=== PATIENT | male | born 1930 | race African-American/Black ===

== ENCOUNTER → 2016-10-12 | Outpatient (CLI) | payer MEDICARE, OTHER ==
[2016-10-12 10:53] LABS: ALANINE AMINOTRANSFERASE 28 U/L (21-72); ALBUMIN 3.5 g/dL (3.5-5.0); ALKALINE PHOSPHATASE 97 U/L (38-126); ANION GAP 8 (5-19); ASPARTATE AMINO TRANSFERASE 31 U/L (17-59); BILIRUBIN,TOTAL 0.5 mg/dL (0.2-1.3); BLOOD UREA NITROGEN 19 mg/dL (7-20); CALCIUM 9.1 mg/dL (8.4-10.2); CARBON DIOXIDE 29 mmol/L (22-30); CHLORIDE 105 mmol/L (98-107); CHOLESTEROL 176.01 mg/dL (0-200); CREATININE RESULT 1.76 mg/dL (0.52-1.25); Direct HDL 40 mg/dL (>40); GLUCOSE 109 mg/dL (75-110); POTASSIUM 4.9 mmol/L (3.6-5.0); SODIUM 142.2 mmol/L (137-145); TOTAL PROTEIN 7.3 g/dL (6.3-8.2); TRIGLYCERIDES 146 mg/dL (<150)
[2016-10-12 11:03] LABS: DIRECT LDL 92 mg/dL (<100)
== END ==
LOC: OD 09:20
PROVIDERS: ATTEND Internal Medicine
DX: I25.10 Atherosclerotic heart disease of native coronary artery without angina pectoris (principal); E78.4 Other hyperlipidemia; I35.0 Nonrheumatic aortic (valve) stenosis; N19 Unspecified kidney failure; I10 Essential (primary) hypertension; R01.1 Cardiac murmur, unspecified; Z98.61 Coronary angioplasty status; Z79.899 Other long term (current) drug therapy
CPT/HCPCS: 36415; 80053; 80061

== ENCOUNTER → 2017-01-28 | Outpatient (CLI) | payer MEDICARE, OTHER ==
--- NOTE | 2017-01-28 09:58 | RADIOLOGY REPORT (SQ) ---
EXAM DESCRIPTION: U/S RETROPERITON (RENAL/AORTA) COMPLETED DATE/TIME: 01/28/2017 7:47 am REASON FOR STUDY: CKD III (N18.3) N18.3 CHRONIC KIDNEY DISEASE, STAGE 3 (MODERATE) COMPARISON: None. TECHNIQUE: Dynamic and static grayscale images acquired of the kidneys and bladder and recorded on P ACS. Additional selected color Doppler and spectral images recorded. LIMITATIONS: Overlying bowel gas obscures the left kidney. FINDINGS: RIGHT KIDNEY: 9.5 cm. Mild increased echogenicity. Mild cortical thinning. 2.[address] No solid or suspicious masses. No hydronephrosis. No calcifications. LEFT KIDNEY: Poorly visualized. 9.1 cm. Mild increased echogenicity. No solid or suspicious mas ses. No hydronephrosis. No calcifications. BLADDER: No masses. OTHER FINDINGS: No other significant finding. IMPRESSION: LIMITED STUDY. MILD INCREASED ECHOGENICITY CONSISTENT WITH CHRONIC RENAL DISEASE. FREDO ICAL CYST IN THE RIGHT KIDNEY. NO HYDRONEPHROSIS. TECHNICAL DOCUMENTATION: JOB ID: [id number] [employer]- All Rights Reserved
== END ==
LOC: RAD 06:39
PROVIDERS: ATTEND Internal Medicine Geriatric Medicine
DX: N18.3 Chronic kidney disease, stage 3 (moderate) (principal); N28.1 Cyst of kidney, acquired
CPT/HCPCS: 76770

== ENCOUNTER → 2017-04-14 | Outpatient (CLI) | payer MEDICARE, OTHER ==
[2017-04-14 10:21] LABS: ALANINE AMINOTRANSFERASE 24 U/L (21-72); ALBUMIN 3.8 g/dL (3.5-5.0); ALKALINE PHOSPHATASE 97 U/L (38-126); ANION GAP 9 (5-19); ASPARTATE AMINO TRANSFERASE 31 U/L (17-59); BILIRUBIN,DIRECT 0.4 mg/dL (0.0-0.4); BILIRUBIN,TOTAL 0.5 mg/dL (0.2-1.3); BLOOD UREA NITROGEN 24 mg/dL (7-20); CALCIUM 8.9 mg/dL (8.4-10.2); CARBON DIOXIDE 24 mmol/L (22-30); CHLORIDE 107 mmol/L (98-107); CHOLESTEROL 184.31 mg/dL (0-200); CREATININE RESULT 1.94 mg/dL (0.52-1.25); Direct HDL 38 mg/dL (>40); GLUCOSE 106 mg/dL (75-110); SODIUM 139.5 mmol/L (137-145); TOTAL PROTEIN 7.3 g/dL (6.3-8.2); TRIGLYCERIDES 158 mg/dL (<150)
[2017-04-14 10:33] LABS: VLDL CHOLESTEROL 31.6 mg/dL (10-31)
[2017-04-14 10:51] LABS: DIRECT LDL 98 mg/dL (<100)
== END ==
LOC: OD 08:33
PROVIDERS: ATTEND Internal Medicine
DX: I25.10 Atherosclerotic heart disease of native coronary artery without angina pectoris (principal); I10 Essential (primary) hypertension; I35.0 Nonrheumatic aortic (valve) stenosis; E78.4 Other hyperlipidemia; R01.1 Cardiac murmur, unspecified; Z98.61 Coronary angioplasty status; Z79.899 Other long term (current) drug therapy; N19 Unspecified kidney failure
CPT/HCPCS: 36415; 80053; 80061

== ENCOUNTER 2017-05-06 06:39 | Day surgery (SDC) | payer MEDICARE, OTHER ==
[~2017-05-06 06:39] MED LIST: KETOROLAC TROMETHAMINE 0.45% 4 DROP/0.4 ML DROPERETTE OS PRN
[2017-05-06] MEDS ORDERED: LIDOCAINE 1% INJ-PF (10 MG/ML) 30 ML SDV ONE (07:42)
[2017-05-06] MEDS ORDERED: CHONDR SU A NA/HYALUR INTRAOC KIT (SURGICARE) ONE (07:42)
[2017-05-06] MEDS ORDERED: EPINEPHRINE INJ/PF 1 MG/1 ML AMPULE ONE (07:42)
[2017-05-06] MEDS: TETRACAINE HCL 0.5% OPH SOLN 2 ML OS PRN ×3 (08:06→08:53)
[2017-05-06] MEDS: CYCLOPENTOLATE 0.2%/PHENYLEPHRINE 1% OPH SOLN 2 ML OS PRN ×3 (08:07→08:32)
[2017-05-06] MEDS: TROPICAMIDE 1% OPH SOLN 3 ML OS PRN ×3 (08:07→08:32)
[2017-05-06] MEDS: BESIFLOXACIN HCL 0.6% OPH SUSP 5 ML BOTTLE OS PRN ×3 (08:07→09:17)
[2017-05-06] MEDS ORDERED: FENTANYL CITRATE INJ/PF 100 MCG/2 ML AMPUL ONE (08:23)
[2017-05-06] MEDS ORDERED: MIDAZOLAM 2 MG/2 ML INJ ONE (08:23)
--- NOTE | 2017-05-07 07:12 | [facility] DISCHARGE SUMMARY E ---
[facility] Discharge Summary NAME: CLARA DAVIDSON AGE: 86Y ADMITTED: 05/06/2017 DISCHARGED: 05/06/2017 HOSPITAL COURSE: This is an 86-year-old patient who underwent cataract extraction of the left eye diagnosed as cataract left eye. He underwent surgery because he was having difficulty driving at night. He should be on a regular diet. No bending at the waist. No heavy lifting. He should use his Besivance, Ilevro, and Durezol at 3 p.m. and 8 p.m. and sleep with a rigid shield, and I see him for his one day postoperative tomorrow. DICTATING PHYSICIAN: GORDON CLEMENS M.D. [id number] PHY#: [id number] ID: [id number] JOB#: [id number] ACCT: [id number] cc:GORDON CLEMENS M.D. >
--- NOTE | 2017-05-07 07:12 | [facility] OPERATIVE REPORT E ---
[facility] Operative Report NAME: CLARA DAVIDSON AGE: 86Y DATE OF SURGERY: 05/06/2017 ROOM: PREOPERATIVE DIAGNOSIS: CATARACT, LEFT EYE. POSTOPERATIVE DIAGNOSIS: CATARACT, LEFT EYE. OPERATION: Cataract extraction with intraocular lens implant of the left eye. SURGEON: GORDON CLEMENS M.D. ANESTHESIA: Topical. PROCEDURE: After obtaining appropriate consent, the patient's left eye was prepped and draped in sterile fashion as well as the surgeon in a sterile manner and cataract surgery was started. First a paracentesis blade was used to make a small side-port incision. Viscoelastic was used to inflate the anterior chamber. Next a 2.4 mm incision was made with the paracentesis blade. A continuous capsulorrhexis incision was made using a cystotome and Utrata forceps. Following this hydrodissection was carried out to make the lens fully loose and mobile and it was rotated 90 degrees. Following this, a jrffuh-qlm-nsnqfmi technique was used to phacoemulsify the lens with a CDE of 10.67. The remaining cortex was removed with irrigation/aspiration. Provisc was instilled into the capsular bag to inflate the bag. A SN60WF, 21.5 SN60WF diopter lens was placed. The remaining viscoelastic material was removed with irrigation/aspiration. Following this, a 10-0 nylon suture was used to close the incision and it was found to be watertight. Vigamox was instilled in the eye and a protective shield was placed over the eye. The patient returned to the postoperative recovery in stable condition. DICTATING PHYSICIAN: GORDON CLEMENS M.D. [id number] PHY#: [id number] ID: [id number] JOB#: [id number] ACCT: [id number] cc:GORDON CLEMENS M.D. >
== END 2017-05-06 10:07 | disposition home or self-care (01) ==
LOC: SC 06:39
PROVIDERS: ATTEND Internal Medicine
PROC: 08RK3JZ Replacement of Left Lens with Synthetic Substitute, Percutaneous Approach (ICD-10-PCS; principal; 2017-05-06 09:00)
DX: H25.813 Combined forms of age-related cataract, bilateral (principal); I10 Essential (primary) hypertension; Z87.891 Personal history of nicotine dependence; Z79.82 Long term (current) use of aspirin; Z79.899 Other long term (current) drug therapy; H35.3131 Nonexudative age-related macular degeneration, bilateral, early dry stage; H43.22 Crystalline deposits in vitreous body, left eye; E78.00 Pure hypercholesterolemia, unspecified; I25.10 Atherosclerotic heart disease of native coronary artery without angina pectoris
CPT/HCPCS: 66984; V2632; J2250; J3490 ×2; A9270; J0171; J3010; 142

== ENCOUNTER 2017-05-27 08:54 | Day surgery (SDC) | payer MEDICARE, OTHER ==
[~2017-05-27 08:54] MED LIST changes: +KETOROLAC TROMETHAMINE 0.45% 4 DROP/0.4 ML DROPERETTE OD PRN; -KETOROLAC TROMETHAMINE 0.45% 4 DROP/0.4 ML DROPERETTE OS PRN
[2017-05-27] MEDS ORDERED: EPINEPHRINE INJ/PF 1 MG/1 ML AMPULE ONE (09:18)
[2017-05-27] MEDS ORDERED: CHONDR SU A NA/HYALUR INTRAOC KIT (SURGICARE) ONE (09:18)
[2017-05-27] MEDS ORDERED: LIDOCAINE 1% INJ-PF (10 MG/ML) 30 ML SDV ONE (09:18)
[2017-05-27] MEDS: BESIFLOXACIN HCL 0.6% OPH SUSP 5 ML BOTTLE OD PRN ×3 (09:38→10:28)
[2017-05-27] MEDS: CYCLOPENTOLATE 0.2%/PHENYLEPHRINE 1% OPH SOLN 2 ML OD PRN ×3 (09:38→09:58)
[2017-05-27] MEDS: TROPICAMIDE 1% OPH SOLN 3 ML OD PRN ×3 (09:38→09:58)
[2017-05-27] MEDS: TETRACAINE HCL 0.5% OPH SOLN 2 ML OD PRN ×3 (09:39→10:10)
[2017-05-27] MEDS ORDERED: MIDAZOLAM 2 MG/2 ML INJ ONE (09:51)
[2017-05-27] MEDS ORDERED: FENTANYL CITRATE INJ/PF 100 MCG/2 ML AMPUL ONE (09:51)
--- NOTE | 2017-05-27 18:03 | DISCHARGE SUMMARY E ---
Discharge Summary NAME: CLARA DAVIDSON : 1930 AGE: 86Y ADMITTED: 05/27/2017 DISCHARGED: REASON FOR ADMISSION: This is an 86-year-old male who underwent cataract extraction of his right eye. DIAGNOSIS: Cataract, right eye. HISTORY AND HOSPITAL COURSE: He underwent surgery because he was having difficulty seeing road signs and words on the TV. He should be on a regular diet. No bending at his waist. No heavy lifting. He should use his Besivance, Ilevro, and Durezol at 3:00 p.m. and 8:00 p.m. and sleep with a rigid shield, and I will see him for his 1-day postoperative day tomorrow. DICTATING PHYSICIAN: GORDON CLEMENS M.D. [id number] PHY#: [id number] ID: [id number] JOB#: [id number] ACCT: [id number] cc:GORDON CLEMENS M.D. >
--- NOTE | 2017-05-27 18:03 | [facility] OPERATIVE REPORT E ---
[facility] Operative Report NAME: CLARA DAVIDSON AGE: 86Y DATE OF SURGERY: 05/27/2017 ROOM: PREOPERATIVE DIAGNOSIS: CATARACT, RIGHT EYE. POSTOPERATIVE DIAGNOSIS: CATARACT, RIGHT EYE. OPERATION: Cataract extraction with intraocular lens implant of the right eye. SURGEON: GORDON CLEMENS M.D. ANESTHESIA: Topical. PROCEDURE: After obtaining appropriate consent, the patient's right eye was prepped and draped in sterile fashion as well as the surgeon in a sterile manner and cataract surgery was started. First a paracentesis blade was used to make a small side-port incision. Viscoelastic was used to inflate the anterior chamber. Next a 2.4 mm incision was made with the paracentesis blade. A continuous capsulorrhexis incision was made using a cystotome and Utrata forceps. Following this hydrodissection was carried out to make the lens fully loose and mobile and it was rotated 90 degrees. Following this, a gnjequ-xkj-eduavke technique was used to phacoemulsify the lens with a CDE of 11.75. The remaining cortex was removed with irrigation/aspiration. Provisc was instilled into the capsular bag to inflate the bag. A SN60WF, 20.5 diopter lens was placed. The remaining viscoelastic material was removed with irrigation/aspiration. Following this, a 10-0 nylon suture was used to close the incision and it was found to be watertight. Vigamox was instilled in the eye and a protective shield was placed over the eye. The patient returned to the postoperative recovery in stable condition. DICTATING PHYSICIAN: GORDON CLEMENS M.D. [id number] PHY#: [id number] ID: [id number] JOB#: [id number] ACCT: [id number] cc:GORDON CLEMENS M.D. >
== END 2017-05-27 11:19 | disposition home or self-care (01) ==
LOC: SC 08:54
PROVIDERS: ATTEND Internal Medicine
PROC: 08RJ3JZ Replacement of Right Lens with Synthetic Substitute, Percutaneous Approach (ICD-10-PCS; principal; 2017-05-27 10:30)
DX: H25.811 Combined forms of age-related cataract, right eye (principal); Z96.1 Presence of intraocular lens; I10 Essential (primary) hypertension; K21.9 Gastro-esophageal reflux disease without esophagitis; M17.9 Osteoarthritis of knee, unspecified; Z79.82 Long term (current) use of aspirin; Z79.899 Other long term (current) drug therapy
CPT/HCPCS: 66984; V2632; J2250; J3490 ×2; A9270; J0171; 142; J3010

== ENCOUNTER → 2017-11-03 | Outpatient (CLI) | payer MEDICARE, OTHER ==
[2017-11-03 10:41] LABS: CHOLESTEROL 174.99 mg/dL (0-200); TRIGLYCERIDES 123 mg/dL (<150)
[2017-11-03 10:52] LABS: DIRECT LDL 100 mg/dL (<100)
== END ==
LOC: OD 08:17
PROVIDERS: ATTEND Internal Medicine
DX: I25.10 Atherosclerotic heart disease of native coronary artery without angina pectoris (principal); I10 Essential (primary) hypertension; I35.0 Nonrheumatic aortic (valve) stenosis; E78.4 Other hyperlipidemia; N19 Unspecified kidney failure; R01.1 Cardiac murmur, unspecified; Z98.61 Coronary angioplasty status; Z79.899 Other long term (current) drug therapy
CPT/HCPCS: 36415; 80061

== ENCOUNTER → 2017-11-10 | Outpatient (CLI) | payer MEDICARE, OTHER ==
--- NOTE | 2017-11-10 15:52 | RADIOLOGY REPORT (SQ) ---
EXAM DESCRIPTION: BARIUM SWALLOW ESOPHAGUS COMPLETED DATE/TIME: 11/10/2017 2:39 pm REASON FOR STUDY: R13.10 DYSPHAGIA, UNSPECIFIED R13.10 DYSPHAGIA, UNSPECIFIED COMPARISON: None. TECHNIQUE: Under fluoroscopic guidance, patient ingested water-soluble contrast to rule out foreign body prior to ingesting barium for the study. Fluoroscopic spot images and routine radiographic image s acquired and stored on PACS. 12 MM BARIUM TABLET GIVEN: Yes. Significant delay in the distal esophagus due to high-grade stricture versus achalasia. LIMITATIONS: None. FLUOROSCOPY TIME: 1 minutes 8 seconds 17 fluoroscopy images saved to PACS. FINDINGS: NEUROMUSCULAR COORDINATION OF SWALLOW: Normal. No aspiration. ESOPHAGEAL MOTILITY: Poor motility with marked dilatation of the entire length of the esophagus. No esophageal spasm. ESOPHAGEAL MUCOSA: Cervical esophageal narrowing approximately 50% is noted near the region of a prom inent cricopharyngeus impression without significant delay in the passage of a barium tablet. There is marked dilatation of nearly the entire length of the esophagus with significant narrowing in the d istal esophagus. This is consistent with achalasia versus high-grade smooth stricture. Contrast can be seen passing slowly through the GE junction and into the stomach. Prominent mucosal folds are no angelica in the mid and distal esophagus. No definite lesions are noted however, visualization is limited due to stasis of barium. Upper endoscopy may be helpful for direct visualization. GASTRO-ESOPHAGEAL JUNCTION: No hiatal hernia. No definite reflux seen however, evaluation was diffic ult due to stasis of barium. NON-GI TRACT STRUCTURES: No significant finding. OTHER: Limited imaging of the stomach demonstrate no definite mucosal abnormalities. No delay in gas tric emptying. IMPRESSION: 1. MARKED DILATATION OF THE ESOPHAGUS WITH HIGH-GRADE NARROWING NEAR THE GE JUNCTION MO ST CONSISTENT WITH ACHALASIA HOWEVER, HIGH-GRADE STRICTURE IS A POSSIBILITY. THIS CAUSES SLOW PASSAG E OF BARIUM AND SIGNIFICANT DELAY IN THE PASSAGE OF A BARIUM TABLET. 2. CERVICAL ESOPHAGEAL NARROWING APPROXIMATELY 50%. THIS DID NOT CAUSE DELAY IN THE PASSAGE OF A BA RIUM TABLET. 3. NO HIATAL HERNIA. NO REFLUX. 4. GASTROENTEROLOGY CONSULTATION AND POSSIBLE UPPER ENDOSCOPY IS RECOMMENDED. COMMENT: Results were called to Dr. William at approximately 1430 hours. Quality ID 145: Final reports for procedures using fluoroscopy that document radiation exposure hemalatha maryuri, or exposure time and number of fluorographic images (if radiation exposure indices are not avail able) TECHNICAL DOCUMENTATION: JOB ID: [id number] [employer]- All Rights Reserved Reading location - IP/workstation name: [email or web address]
== END ==
LOC: RAD 13:37
PROVIDERS: ATTEND Internal Medicine Geriatric Medicine
DX: K22.0 Achalasia of cardia (principal); R13.10 Dysphagia, unspecified
CPT/HCPCS: 74220

== ENCOUNTER → 2018-02-08 | Outpatient (CLI) | payer MEDICARE, OTHER ==
[2018-02-08 10:43] LABS: ALANINE AMINOTRANSFERASE 23 U/L (21-72); ALBUMIN 3.3 g/dL (3.5-5.0); ALKALINE PHOSPHATASE 81 U/L (38-126); ANION GAP 10 (5-19); ASPARTATE AMINO TRANSFERASE 28 U/L (17-59); BILIRUBIN,DIRECT 0.3 mg/dL (0.0-0.4); BILIRUBIN,TOTAL 0.3 mg/dL (0.2-1.3); BLOOD UREA NITROGEN 21 mg/dL (7-20); CALCIUM 8.8 mg/dL (8.4-10.2); CARBON DIOXIDE 25 mmol/L (22-30); CHLORIDE 111 mmol/L (98-107); CHOLESTEROL 145.35 mg/dL (0-200); GLUCOSE 107 mg/dL (75-110); POTASSIUM 4.4 mmol/L (3.6-5.0); SODIUM 146.2 mmol/L (137-145); TOTAL PROTEIN 6.6 g/dL (6.3-8.2); TRIGLYCERIDES 79 mg/dL (<150)
[2018-02-08 10:56] LABS: DIRECT LDL 77 mg/dL (<100)
== END ==
LOC: OD 09:06
PROVIDERS: ATTEND Internal Medicine Geriatric Medicine
DX: I10 Essential (primary) hypertension (principal)
CPT/HCPCS: 36415; 80053; 80061

== ENCOUNTER → 2018-03-16 | Outpatient (CLI) | payer MEDICARE, OTHER ==
[2018-03-16 09:48] LABS: ALANINE AMINOTRANSFERASE 15 U/L (21-72); ALBUMIN 3.5 g/dL (3.5-5.0); ALKALINE PHOSPHATASE 92 U/L (38-126); ANION GAP 13 (5-19); ASPARTATE AMINO TRANSFERASE 26 U/L (17-59); BILIRUBIN,DIRECT 0.4 mg/dL (0.0-0.4); BILIRUBIN,TOTAL 0.6 mg/dL (0.2-1.3); BLOOD UREA NITROGEN 29 mg/dL (7-20); CALCIUM 9.1 mg/dL (8.4-10.2); CARBON DIOXIDE 24 mmol/L (22-30); CHLORIDE 107 mmol/L (98-107); CHOLESTEROL 145.21 mg/dL (0-200); GLUCOSE 96 mg/dL (75-110); SODIUM 143.7 mmol/L (137-145); TOTAL PROTEIN 7.1 g/dL (6.3-8.2); TRIGLYCERIDES 116 mg/dL (<150)
[2018-03-16 09:59] LABS: DIRECT LDL 73 mg/dL (<100)
== END ==
LOC: OD 08:01
PROVIDERS: ATTEND Internal Medicine
DX: I25.10 Atherosclerotic heart disease of native coronary artery without angina pectoris (principal); E78.4 Other hyperlipidemia; N19 Unspecified kidney failure; I35.0 Nonrheumatic aortic (valve) stenosis; I10 Essential (primary) hypertension; R01.1 Cardiac murmur, unspecified; Z98.61 Coronary angioplasty status; Z79.899 Other long term (current) drug therapy
CPT/HCPCS: 36415; 80053; 80061

== ENCOUNTER → 2018-03-16 | Outpatient (CLI) | payer MEDICARE, OTHER ==
--- NOTE | 2018-03-16 10:03 | RADIOLOGY REPORT (SQ) ---
EXAM DESCRIPTION: BARIUM SWALLOW ESOPHAGUS COMPLETED DATE/TIME: 03/16/2018 9:25 am REASON FOR STUDY: DYSPHAGIA R13.10 DYSPHAGIA, UNSPECIFIED COMPARISON: Esophagram 11/10/2017 TECHNIQUE: Under fluoroscopic guidance, patient ingested effervescent granules followed by thick and thin barium. Fluoroscopic spot images and routine radiographic images acquired and stored on PACS. 12 MM BARIUM TABLET GIVEN: No LIMITATIONS: None. FLUOROSCOPY TIME: FLUORO TIME: 2 minutes 18 seconds 11 series of digital images saved to PACS. FINDINGS: NEUROMUSCULAR COORDINATION OF SWALLOW: Trace subglottic aspiration occurred during the carie dy. Prominent cricopharyngeus impression ESOPHAGEAL MOTILITY: Diffusely decreased esophageal motility and peristalsis ESOPHAGEAL MUCOSA: Normal mucosa without masses or ulceration. GASTRO-ESOPHAGEAL JUNCTION: No hiatal hernia. There is tight stricture at the GE junction, unchanged from 11/10/2017. This causes barium to pool in the distal esophagus, with very slow esophageal emptyi ng. NON-GI TRACT STRUCTURES: No significant finding. OTHER: Paucity of folds in the stomach, atrophic gastritis may be present. IMPRESSION: Subglottic aspiration Distended saccular esophagus with decreased peristalsis. Tight stricture at the GE junction which de layed passage of thin and thick liquid barium into the stomach. COMMENT: Quality ID 145: Final reports for procedures using fluoroscopy that document radiation exp osure indices, or exposure time and number of fluorographic images (if radiation exposure indices are not available) TECHNICAL DOCUMENTATION: JOB ID: [id number] [employer]- All Rights Reserved Reading location - IP/workstation name: [email or web address]
== END ==
LOC: RAD 08:24
PROVIDERS: ATTEND Internal Medicine Gastroenterology
DX: R13.10 Dysphagia, unspecified (principal)
CPT/HCPCS: 74220

== ENCOUNTER 2018-05-10 15:05 | Day surgery (SDC) | payer MEDICARE, OTHER ==
[2018-05-10] MEDS ORDERED: DIPHENHYDRAMINE HCL 50 MG/ML VIAL ONE (16:42)
[2018-05-10] MEDS ORDERED: GLUCAGON,HUMAN RECOMB 1 MG INJ ONE (16:43)
[2018-05-10] MEDS ORDERED: FENTANYL CITRATE INJ/PF 100 MCG/2 ML AMPUL ONE (16:43)
[2018-05-10] MEDS ORDERED: EPINEPHRINE INJ 1 MG/10 ML DISP.SYRIN ONE (16:43)
[2018-05-10] MEDS ORDERED: ONDANSETRON HCL INJ/PF 4 MG/2 ML SDV ONE (16:43)
[2018-05-10] MEDS ORDERED: NALOXONE HCL INJ/PF 0.4 MG/1 ML SDV ONE (16:43)
[2018-05-10] MEDS ORDERED: MIDAZOLAM 2 MG/2 ML INJ ONE (16:43)
[2018-05-10] MEDS ORDERED: FLUMAZENIL INJ 0.5 MG/5 ML VIAL ONE (16:43)
[2018-05-10] MEDS ORDERED: ONABOTULINUMTOXINA INJ/PF 100 UNIT SDV IM ONE (17:30)
--- NOTE | 2018-05-10 17:47 | Operative Report ---
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 The upper endoscope was inserted into the esophagus under direct vision and advanced into the stomach. The duodenum was entered and examined to the second part. Endoscope was then slowly pulled out of the patient as the mucosa was examined into details. Patient tolerated procedure well. Findings Esophagus: There was moderate amount of food in the esophagus which is I will have the EGD scope on the side but will start with the was also dilated. The food was pushed into the stomach through a tight muscular GE junction. No mucosal abnormality was identified. There was large amount of fluid in the stomach which limited my view. 100 units of Botox was then injected into 4 quadrants at the GE junction. Antrum: Normal Body: Normal Fundus: Normal Duodenum first part: Normal Duodenum second part: Normal Plan: Soft diet OPERATION: .
[2018-05-10 18:35] VITALS: BP 154/75
== END 2018-05-10 18:35 | disposition home or self-care (01) ==
LOC: END 15:05
PROVIDERS: ATTEND Internal Medicine Gastroenterology
DX: K22.2 Esophageal obstruction (principal); K21.9 Gastro-esophageal reflux disease without esophagitis; I10 Essential (primary) hypertension; E78.00 Pure hypercholesterolemia, unspecified; D64.9 Anemia, unspecified; Z79.82 Long term (current) use of aspirin; Z79.899 Other long term (current) drug therapy
CPT/HCPCS: 43236; J2250; J3010; J0585; J0171; J1200; J1610; J2310; J2405; J3490

== ENCOUNTER 2018-07-05 13:07 | Day surgery (SDC) | payer MEDICARE, OTHER ==
[2018-07-05] MEDS ORDERED: LIDOCAINE 2% JELLY 5 ML TUBE ONE (13:50)
[2018-07-05] MEDS ORDERED: ONDANSETRON HCL INJ/PF 4 MG/2 ML SDV ONE (14:53)
[2018-07-05] MEDS ORDERED: FENTANYL CITRATE INJ/PF 100 MCG/2 ML AMPUL ONE (14:53)
[2018-07-05] MEDS ORDERED: NALOXONE HCL INJ/PF 0.4 MG/1 ML SDV ONE (14:54)
[2018-07-05] MEDS ORDERED: GLUCAGON,HUMAN RECOMB 1 MG INJ ONE (14:54)
[2018-07-05] MEDS ORDERED: FLUMAZENIL INJ 0.5 MG/5 ML VIAL ONE (14:54)
[2018-07-05] MEDS ORDERED: EPINEPHRINE INJ 1 MG/10 ML DISP.SYRIN ONE (14:54)
[2018-07-05] MEDS: MIDAZOLAM 2 MG/2 ML INJ ONE ×2 (16:18→16:25)
[2018-07-05] MEDS ORDERED: ONABOTULINUMTOXINA INJ/PF 100 UNIT SDV IJ PRN (16:33)
--- NOTE | 2018-07-05 16:50 | Operative Report ---
Operative Report DATE OF SURGERY: 07/05/18 Operative Report: Pre-op diagnosis: Dysphagia with achalasia Post-op diagnosis: 1. GE junction stricture 2. Markedly dilated esophagus with foreign body Surgery: Esophagogastroduodenoscopy with foreign body removal, balloon dilation and Botox injection Medications: Versed 2mg Fentanyl 50mcg IV push Tissue removed: None Procedure: After informed consent obtained from patient, the throat was sprayed with Hurricane and conscious sedation was achieved. The upper endoscope was inserted into the esophagus under direct vision and advanced into the stomach. The duodenum was entered and examined to the second part. Endoscope was then slowly pulled out of the patient as the mucosa was examined into details. Patient tolerated procedure well. Findings Esophagus: There was large amount of food in the esophagus which was markedly dilated with no contractions. The food was then pushed into the stomach over a few minutes. There was a stricture at the GE junction which appear muscular with no mucosal abnormality. I decided to dilate the GE junction with a 20 mm balloon. This yielded a break in the mucosa. Botox 100 units was then injected into 4 quadrants at the GE junction. Antrum: Normal Body: Normal Fundus: Normal Duodenum first part: Normal Duodenum second part: Normal Plan: Continue soft foods and liquids. He would benefit from pneumatic dilation at [facility] unless he has significant improvement with today's procedure OPERATION: .
[2018-07-05 17:40] VITALS: BP 159/80
== END 2018-07-05 17:40 | disposition home or self-care (01) ==
LOC: END 13:07
PROVIDERS: ATTEND Internal Medicine Gastroenterology
DX: K22.2 Esophageal obstruction (principal); K22.8 Other specified diseases of esophagus; T18.128A Food in esophagus causing other injury, initial encounter; X58.XXXA Exposure to other specified factors, initial encounter; K21.9 Gastro-esophageal reflux disease without esophagitis; I10 Essential (primary) hypertension; E78.00 Pure hypercholesterolemia, unspecified; D64.9 Anemia, unspecified; Z79.82 Long term (current) use of aspirin; Z79.899 Other long term (current) drug therapy
CPT/HCPCS: 43236; 43249; 91010; C1726; J2250; J3010; J0585; J0171; J1610; J2310; J2405; J3490

== ENCOUNTER 2019-06-27 15:30 | Emergency (ER) | payer MEDICARE, OTHER ==
--- NOTE | 2019-06-27 15:55 | ER Document Report ---
ED Medical Screen (RME) - General Chief Complaint: Abdominal Pain Stated Complaint: DIGESTIVE ISSUES Time Seen by Provider: 06/27/19 15:42 Primary Care Provider: VIET CESPEDES MD [Primary Care Provider] - Follow up as needed Notes: Patient is an 88-year-old male who presents emergency department with the chief complaint of the feeling of food getting stuck at the end of his esophagus. About a year ago he had his esophagus evaluated and had it stretched to help. He did not have any problems until just recently. Patient states that sometimes he will feel something gets stuck and he will bend over and ended up vomiting. He did not vomit today and does not feel like something is stuck. Denies any pain. Exam: Soft nontender abdomen. I have greeted and performed a rapid initial assessment of this patient. A comprehensive ED assessment and evaluation of the patient, analysis of test results and completion of medical decision making process will be conducted by an additional ED providers. TRAVEL OUTSIDE OF THE [place] IN LAST 30 DAYS: No - Related Data Allergies/Adverse Reactions: No Known Allergies Allergy (Verified 06/27/19 15:37) Past Medical History - Past Medical History Cardiac Medical History: Reports: Hx Coronary Artery Disease - 2 stents, Hx Hypertension Denies: Hx Heart Attack Pulmonary Medical History: Denies: Hx Asthma, Hx Bronchitis, Hx COPD, Hx Pneumonia Neurological Medical History: Denies: Hx Cerebrovascular Accident, Hx Seizures GI Medical History: Denies: Hx Hepatitis, Hx Hiatal Hernia, Hx Ulcer Musculoskeltal Medical History: Denies Hx Arthritis Infectious Medical History: Denies: Hx Hepatitis Past Surgical History: Denies: Hx Open Heart Surgery, Hx Pacemaker - Immunizations Hx Diphtheria, Pertussis, Tetanus Vaccination: No Physical Exam - Vital signs Vitals: Temp Pulse Resp BP 97.8 F 91 18 152/67 H 06/27/19 15:35 06/27/19 15:35 06/27/19 15:35 06/27/19 15:35 Course - Vital Signs Vital signs: Temp Pulse Resp BP Pulse Ox 97.8 F 91 18 152/67 H 06/27/19 15:35 06/27/19 15:35 06/27/19 15:35 06/27/19 15:35 Doctor's Discharge - Discharge Referrals: VIET CESPEDES MD [Primary Care Provider] - Follow up as needed
[2019-06-27 16:12] LABS: ABSOLUTE LYMPHOCYTES (AUTO) 1.5 10^3/uL (0.5-4.7); ABSOLUTE MONOCYTES (AUTO) 0.5 10^3/uL (0.1-1.4); ABSOLUTE NEUT (AUTO) 1.7 10^3/uL (1.7-8.2); BASOPHILS % (AUTO) 0.7 % (0-2); EOSINOPHILS % (AUTO) 1.1 % (0-6); HEMATOCRIT 35.8 % (37.9-51.0); HEMOGLOBIN 11.7 g/dL (13.5-17.0); LYMPHOCYTES % (AUTO) 39.7 % (13-45); MEAN CORPUSCULAR HEMOGLOBIN 27.4 pg (27.0-33.4); MEAN CORPUSCULAR HGB CONC 32.8 g/dL (32.0-36.0); MEAN CORPUSCULAR VOLUME 83 fl (80-97); MONOCYTES % (AUTO) 13.8 % (3-13); PLATELET COUNT 251 10^3/uL (150-450); RED BLOOD COUNT 4.28 10^6/uL (4.35-5.55); RED CELL DISTRIBUTION WIDTH 14.1 % (11.5-14.0); SEGMENTED NEUTROPHILS % (AUTO) 44.7 % (42-78); TOTAL CELLS COUNTED % (AUTO) 100 %; WHITE BLOOD COUNT 3.9 10^3/uL (4.0-10.5)
[2019-06-27 16:36] LABS: ALBUMIN 3.1 g/dL (3.5-5.0); ALKALINE PHOSPHATASE 86 U/L (38-126); ANION GAP 7 (5-19); ASPARTATE AMINO TRANSFERASE 26 U/L (17-59); BILIRUBIN,DIRECT 0.2 mg/dL (0.0-0.4); BILIRUBIN,TOTAL 0.4 mg/dL (0.2-1.3); BLOOD UREA NITROGEN 18 mg/dL (7-20); CARBON DIOXIDE 25 mmol/L (22-30); CHLORIDE 112 mmol/L (98-107); GLUCOSE 94 mg/dL (75-110); POTASSIUM 5.3 mmol/L (3.6-5.0); TOTAL PROTEIN 6.9 g/dL (6.3-8.2)
--- NOTE | 2019-06-27 17:03 | RADIOLOGY REPORT (SQ) ---
EXAM DESCRIPTION: BARIUM SWALLOW ESOPHAGUS COMPLETED DATE/TIME: 06/27/2019 4:47 pm REASON FOR STUDY: sensation of not getting food down COMPARISON: Barium swallow 03/16/2018 TECHNIQUE: Under fluoroscopic guidance, patient ingested water-soluble contrast followed by thick an d thin barium. Fluoroscopic spot images and routine radiographic images acquired and stored on PACS. 12 MM BARIUM TABLET GIVEN: Barium tablet stuck a GE junction LIMITATIONS: None. FLUOROSCOPY TIME: 3.41 minutes 16 images saved to PACS. FINDINGS: NEUROMUSCULAR COORDINATION OF SWALLOW: Normal. No aspiration. Prominent cricopharyngeus h ypertrophy. ESOPHAGEAL MOTILITY: Decreased peristalsis and motility. ESOPHAGEAL MUCOSA: Limited evaluation due to food residuals throughout the esophagus. The esophagus is diffusely dilated and patulous. No definite mass is identified. GASTRO-ESOPHAGEAL JUNCTION: No hiatal hernia. Significant stricture at the GE junction similar to st udy of 03/16/2018. Stricture causes slow esophageal emptying into the stomach with food residuals see n in esophagus. NON-GI TRACT STRUCTURES: No significant finding. OTHER: No other significant finding. IMPRESSION: DIFFUSE ESOPHAGEAL DILATATION WITH FOOD RESIDUALS SEEN THROUGHOUT. SIGNIFICANT STRICTUR E OF THE GE JUNCTION WHICH DELAYS ESOPHAGEAL EMPTYING AND IMPEDES PASSAGE OF A 12 MM BARIUM TABLET. STUDY IS SIMILAR IN APPEARANCE TO BARIUM SWALLOW OF 03/16/2018. COMMENT: NONE Quality ID 145: Final reports for procedures using fluoroscopy that document radiation exposure hemalatha maryuri, or exposure time and number of fluorographic images (if radiation exposure indices are not avail able) TECHNICAL DOCUMENTATION: JOB ID: [id number] [employer]- All Rights Reserved Reading location - IP/workstation name: [email or web address] [id number]
--- NOTE | 2019-06-27 18:32 | ER Document Report ---
ED General - General Chief Complaint: Abdominal Pain Stated Complaint: DIGESTIVE ISSUES Time Seen by Provider: 06/27/19 15:42 Primary Care Provider: VIET CESPEDES MD [Primary Care Provider] - Follow up as needed TRAVEL OUTSIDE OF THE [place] IN LAST 30 DAYS: No - HPI Notes: Patient is an 88-year-old male who presents emergency department for evaluation. He states he feels as if he has something stuck in his esophagus. He states he said similar symptoms in the past. He had a dilation and treatment last year. He states his symptoms have arisen over the last month. He denies any significant foreign body sensation right now. He is tolerating fluids. Still urinating. Still able to swallow his medications. He denies any pain at this time. - Related Data Allergies/Adverse Reactions: No Known Allergies Allergy (Verified 06/27/19 15:37) Past Medical History - General Information source: Patient - Social History Smoking Status: Former Smoker Family History: Reviewed & Not Pertinent Patient has suicidal ideation: No Patient has homicidal ideation: No - Medical History Notes: Anemia - Past Medical History Cardiac Medical History: Reports: Hx Coronary Artery Disease - 2 stents, Hx Hypercholesterolemia, Hx Hypertension Denies: Hx Heart Attack Pulmonary Medical History: Denies: Hx Asthma, Hx Bronchitis, Hx COPD, Hx Pneumonia Neurological Medical History: Denies: Hx Cerebrovascular Accident, Hx Seizures GI Medical History: Reports: Hx Gastroesophageal Reflux Disease, Other - Esophageal stricture. Denies: Hx Hepatitis, Hx Hiatal Hernia, Hx Ulcer Musculoskeletal Medical History: Denies Hx Arthritis Infectious Medical History: Denies: Hx Hepatitis Past Surgical History: Reports: Hx Orthopedic Surgery - LT KNEE, Hx Tonsillectomy. Denies: Hx Open Heart Surgery, Hx Pacemaker - Immunizations Hx Diphtheria, Pertussis, Tetanus Vaccination: No Review of Systems - Review of Systems Constitutional: No symptoms reported EENT: No symptoms reported Cardiovascular: No symptoms reported Respiratory: No symptoms reported Gastrointestinal: See HPI Genitourinary: No symptoms reported Musculoskeletal: No symptoms reported Skin: No symptoms reported Neurological/Psychological: No symptoms reported Physical Exam - Vital signs Vitals: Temp Pulse Resp BP 97.8 F 91 18 152/67 H 06/27/19 15:35 06/27/19 15:35 06/27/19 15:35 06/27/19 15:35 - Notes Notes: Vital signs reviewed, please refer to chart. Head is normocephalic, atraumatic. Pupils equal round, reactive to light. Neck is supple without meningismus. Heart is regular rate and rhythm. Lungs are clear to auscultation bilaterally. Abdomen is soft, nontender, normoactive bowel sounds throughout. Extremities wi thout cyanosis, clubbing. Posterior calves are nontender. Peripheral pulses are equal. Skin is warm and dry. Patient is awake, alert, neurological exam is nonfocal. Course - Re-evaluation Re-evalutation: 06/27/19 18:30 Patient presents emergency department for evaluation. He had laboratory investigations and barium swallow was ordered through triage. Barium swallow did reveal signs of retained food, achalasia. The patient is handling his own secretions without difficulty. He is not dehydrated. He has some mild hyperkal emia, abnormal renal function, but this is actually an improvement over baseline. I strongly encouraged him to follow-up with Dr. Mondragon, the repair armature winder helper who performed his dilation and treatment back in June of last year. He voiced understanding. He is to return to the ED with worsening or new concerning symptoms of any sort. - Vital Signs Vital signs: Temp Pulse Resp BP Pulse Ox 97.8 F 91 18 152/67 H 06/27/19 15:35 06/27/19 15:35 06/27/19 15:35 06/27/19 15:35 - Laboratory Result Diagrams: 06/27/19 16:00 06/27/19 16:00 Laboratory results interpreted by me: 06/27/19 06/27/19 16:00 16:00 WBC 3.9 L RBC 4.28 L Hgb 11.7 L Hct 35.8 L RDW 14.1 H [place] % (Auto) 13.8 H Potassium 5.3 H Chloride 112 H Creatinine 1.79 H Est GFR ( Amer) 43 L Est GFR (MDRD) Non-Af 36 L Albumin 3.1 L - Diagnostic Test Radiology reviewed: Reports reviewed Radiology results interpreted by me: 06/27/19 18:31 Esophagus X-Ray 06/27/19 15:53 IMPRESSION: DIFFUSE ESOPHAGEAL DILATATION WITH FOOD RESIDUALS SEEN THROUGHOUT. SIGNIFICANT STRICTURE OF THE GE JUNCTION WHICH DELAYS ESOPHAGEAL EMPTYING AND IMPEDES PASSAGE OF A 12 MM BARIUM TABLET. STUDY IS SIMILAR IN APPEARANCE TO BARIUM SWALLOW OF 03/16/2018. Discharge - Discharge Clinical Impression: Achalasia of esophagus Condition: Stable Disposition: HOME, SELF-CARE Instructions: Esophageal Food Impaction ([facility]) Additional Instructions: Continue your home medications as prescribed. You need to follow-up with Dr. Mondragon, schedule another EGD with dilation and further treatment. Contact his office tomorrow for evaluation. Return to the emergency department with worsening or new concerning symptoms of any sort. Referrals: VIET CESPEDES MD [Primary Care Provider] - Follow up as needed LOUIS MONDRAGON MD [ACTIVE STAFF] - Follow up as needed
[2019-06-27 18:55] VITALS: BP 137/76
== END 2019-06-27 18:50 | disposition home or self-care (01) ==
LOC: ER 15:30
DX: K22.0 Achalasia of cardia (principal); R10.9 Unspecified abdominal pain; I25.10 Atherosclerotic heart disease of native coronary artery without angina pectoris; E78.00 Pure hypercholesterolemia, unspecified; I10 Essential (primary) hypertension
CPT/HCPCS: 36415; 74220; 80053; 85025; 99284

== ENCOUNTER 2019-07-18 15:03 | Day surgery (SDC) | payer MEDICARE, OTHER ==
[2019-07-18] MEDS ORDERED: DIPHENHYDRAMINE HCL 50 MG/ML VIAL ONE (15:39)
[2019-07-18] MEDS ORDERED: ONDANSETRON HCL INJ/PF 4 MG/2 ML SDV ONE (15:39)
[2019-07-18] MEDS ORDERED: NALOXONE HCL INJ/PF 0.4 MG/1 ML SDV ONE (15:40)
[2019-07-18] MEDS ORDERED: FLUMAZENIL INJ 0.5 MG/5 ML VIAL ONE (15:40)
[2019-07-18] MEDS ORDERED: GLUCAGON,HUMAN RECOMB 1 MG INJ ONE (15:40)
[2019-07-18] MEDS ORDERED: FENTANYL CITRATE INJ/PF 100 MCG/2 ML AMPUL ONE (15:40)
[2019-07-18] MEDS ORDERED: EPINEPHRINE INJ 1 MG/10 ML DISP.SYRIN ONE (15:40)
[2019-07-18] MEDS ORDERED: ONABOTULINUMTOXINA INJ/PF 100 UNIT SDV IM ONE (16:00)
[2019-07-18] MEDS: MIDAZOLAM 2 MG/2 ML INJ ONE ×2 (17:00→17:12)
--- NOTE | 2019-07-18 17:37 | Operative Report ---
Operative Report DATE OF SURGERY: 07/18/19 Operative Report: Pre-op diagnosis: History of achalasia with previous Botox injection and balloon dilation Post-op diagnosis: 1. Massively dilated esophagus 2. GE junction stricture 3. Large amount of food in the esophagus Surgery: Esophagogastroduodenoscopy with Botox injection and balloon dilation Medications: Versed 2mg Fentanyl 50mcg IV push Tissue removed: None Procedure: After informed consent obtained from patient, the throat was sprayed with Hurricane and conscious sedation was achieved. The upper endoscope was inserted into the esophagus under direct vision. There was a large amount of fluid noted in the very dilated esophagus. I was not able to suction out the food using the endoscope which I replaced with a large Keenan tube that was passed into the esophagus through the mouth. A large part of the residual food in the esophagus was suctioned out. I then reinserted the endoscope I was able to identify the GE junction that appeared stenotic. The stomach and duodenum were unremarkable. The GE junction was then injected with Botox in 4 quadrants. This was followed by an 18 mm balloon dilation with a good break in the mucosa. Patient tolerated procedure well. 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 This was injected with Botox and dilated with 18 mm balloon Antrum: Normal Body: Normal Fundus: Normal Duodenum first part: Normal Duodenum second part: Normal Plan: Continue PPI OPERATION: .
[2019-07-18 18:23] VITALS: BP 141/72
== END 2019-07-18 18:30 | disposition home or self-care (01) ==
LOC: END 15:03
PROVIDERS: ATTEND Internal Medicine Gastroenterology
DX: K22.2 Esophageal obstruction (principal); K22.8 Other specified diseases of esophagus; T18.128A Food in esophagus causing other injury, initial encounter; X58.XXXA Exposure to other specified factors, initial encounter; K22.0 Achalasia of cardia; R63.4 Abnormal weight loss
CPT/HCPCS: 43236; 43249; C1726; J2250; J3010; J0585; J0171; J1200; J1610; J2310; J2405; J3490